=== PATIENT | female | born 1940 | race Caucasian/White ===

== ENCOUNTER 2016-07-25 08:08 | Observation (INO) | payer OTHER ==
[2016-07-18 09:45] LABS: HEMATOCRIT 36.3 % (36.0-48.0); HEMOGLOBIN 11.9 g/dL (12.0-16.0)
[2016-07-18 10:03] LABS: CHLORIDE, SERUM 104 MMOL/L (96-112); CO2 (CARBON DIOXIDE) 26 MMOL/L (24-34); CREATININE 1.35 MG/DL (0.55-1.02); GFR AFRICAN AMERICAN 45 ML/MIN (>=60); GFR NON AFRICAN AMERICAN 39 ML/MIN (>=60); GLUCOSE, SERUM 162 MG/DL (60-99); POTASSIUM, SERUM 5.4 MMOL/L (3.5-5.3); SODIUM, SERUM 139 MMOL/L (135-148)
[2016-07-18 10:06] LABS: BUN (BLOOD UREA NITROGEN) 20 MG/DL (6-23); CALCIUM, SERUM 9.4 MG/DL (8.5-10.4)
--- NOTE | ~2016-07-25 | OP ---
Record Of Operation [facility] [address] [place]. [address] NAME: DENNIS TRUJILLO : 44 STATUS : ADM IN PAT#: [id number] AGE: 76 ADM/REG DATE : 07/25/16 MR#: [id number] REPORT SERV DATE: 07/25/16 DICTATED BY: JEREMI NORRIS DATE: 07/25/16 REPORT STATUS : Draft TRANSCRIBED BY: MODL DATE: 07/25/16 DATE OF PROCEDURE: PREOPERATIVE DIAGNOSIS: Herniated nucleus polyposis and severe C7 radiculopathy on the right. POSTOPERATIVE DIAGNOSIS: Herniated nucleus polyposis and severe C7 radiculopathy on the right. PROCEDURE: 1. Microscopic navigation assisted surgery. 2. Right C6-C7 anterior cervical diskectomy. 3. Anterior interbody fusion with cortical cancellous allograft. 4. Anterior instrumentation with Venture plating. SURGEON: Jeremi Norris D.O. MANUFACTURER'S SERVICE REPRESENTATIVE: Lobo Benitez. ANESTHESIA: General. BLOOD LOSS: 10 mL. INDICATIONS FOR SURGERY: Risks were explained. They are listed in the last office's note as well history and physical. See that for detail. DESCRIPTION OF PROCEDURE: Antibiotic prophylaxis given. Neurophysiology monitoring leads inserted. The patient was brought to the operative suite. General anesthetic including endotracheal intubation was administered. The patient was in a supine position on fluoroscopic Armando spine frame. Bony prominences were carefully padded. The bolster was placed behind the shoulders. The neck was in neutral alignment. The scalp was painted with Betadine solution. Lynn 3-point fixation attached to the skull using 60 pounds of torque in standard position. Lynn was attached to the Armando bed. The [employer] navigational registration frame attached to the [place]. Isolation drapes were placed. The neck was scrubbed with Hibiclens solution. DuraPrep was painted. Sterile drapes applied. Intraoperative CT scan with O-arm obtained. CT information used to register the navigational system. With navigational assistance, I identified the C6-C7 level. On the left side parallel with the disc space at C6-C7, a transverse 2.5 cm skin incision was carried out. The platysma was incised in line with the skin incision. The superficial layer of the deep cervical fascia was released along the anterior border of the sternocleidomastoid. Blunt dissection was carried out to the retropharyngeal space. The bone retractors were placed. The disc of C6-C7 was exposed. The Bennett distractor pins were placed in the midbody of C6 and C7 using Record Of Operation [facility] [address] [place]. [address] NAME: DENNIS TRUJILLO : 44 STATUS : ADM IN PAT#: [id number] AGE: 76 ADM/REG DATE : 07/25/16 MR#: [id number] REPORT SERV DATE: 07/25/16 DICTATED BY: JEREMI NORRIS DATE: 07/25/16 REPORT STATUS : Draft TRANSCRIBED BY: MORELIA DATE: 07/25/16 navigational assistance and this was also used to re-verify the correct level and position. After the scope was sterilely draped, I used it throughout the remainder of the procedure. Initially, the disk was incised, diskectomy was completed with curettes and rongeurs. Posteriorly, just to the right of midline, there was a large tear in the posterior longitudinal ligament. The 1-mm Kerrison rongeur was used to take down the posterior longitudinal ligament and completely expose the disk space. Diskectomy was completed without difficulty. There was an epidural extrusion. After the disk was completed, the endplates were curetted. The width, depth, and height of the disk space was measured. A wedge-shaped cortical cancellous allograft was placed in the interbody space. Traction released locking the graft in good position. Finally, a 4-hole Venture plate was placed over the anterior bodies of C6 and C7, centered in the midline with navigational assistance. The four holes were drilled. Locking screws inserted, providing rigid stability. Intraoperative AP and lateral x-rays taken, showing good position of all implants. The wound was completely dry. No drain was placed. The platysma was closed with a running 3-0 Vicryl suture. Subcutaneous tissue was closed with 3 0 Vicryl suture, subcuticular 4-0 PDS was used for skin closure. Sterile dressings applied. The patient was awakened, extubated, taken to recovery room in satisfactory condition having tolerated the procedure well. Sponge, needle, and instrument counts were correct. No intraoperative complications noted. TATY/MORELIA Jeremi Norris D.O. / [id number] CC: Renuka Collins
--- NOTE | ~2016-07-25 | PREOPHP ---
PreOp History and Physical [facility] [address] [place]. [address] NAME: DENNIS TRUJILLO : 44 STATUS : ADM IN [facility]#: [id number] AGE: 76 ADM/REG DATE : 07/25/16 MR#: [id number] REPORT SERV DATE: 07/25/16 DICTATED BY: JEREMI NORRIS DATE: 07/25/16 REPORT STATUS : Draft TRANSCRIBED BY: MODL DATE: 07/25/16 CHIEF COMPLAINT: Neck pain, right shoulder and arm pain. HISTORY OF PRESENT ILLNESS: This is a 76-year-old female, who I have taken care of in the past with lower lumbar problems, now she has neck pain, right shoulder and arm pain, it is intractable. The patient has been through a conservative treatment program, but now has an MRI showing a large disk herniation with severe impingement on the C7 nerve root with herniation at C6-C7. There is some disk degeneration and facet arthropathy of C5-C6, but only C6-C7 has impingement. The patient has tried conservative care and failed, now brought to surgery for anterior cervical diskectomy, foraminotomy, C6-C7 with anterior interbody allograft and anterior instrumentation. Prior to surgery, risks, benefits, alternatives, and expectations have been explained. Consent form has been signed. Please also note, because of the complexity of surgery and the need to identify correct level of surgery intraoperatively as well as desire to carry out the safest and most precise dissection with least amount of radiation exposure, I felt that intraoperative navigation was mandatory. Today, the patient was identified in preop holding. All questions were answered. The patient voiced understanding of the risks, willingness to accept those, and requested to proceed with surgery. 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 PAST SURGICAL HISTORY: The patient has had lumbar diskectomy, also lumbar fusion, wisdom tooth extraction, abdominal hysterectomy, cataract extraction and lens implant, right total knee arthroplasty. She has also had previous lumbar fusion by Dr. Smith. She had cardiac stents x2. CURRENT MEDICATIONS: Coumadin, Voltaren, ranitidine, spironolactone, oxybutynin, metformin, amlodipine, atorvastatin, citalopram, Flexeril, iron, gabapentin, losartan. ALLERGIES: MORPHINE. SOCIAL HISTORY: , retired. Does not use any tobacco or alcohol. FAMILY HISTORY: Her mother had esophageal cancer, father had COPD, one brother had DC, all are . REVIEW OF SYSTEMS: She denies current chest pain, pressure, or shortness of breath. Has had no recent change in bowel and bladder function. PHYSICAL EXAMINATION: VITAL SIGNS: 5 feet 6 inches and 155 pounds. BMI is 25. GENERAL: She is alert, cooperative, well oriented. Ambulates independently. PreOp History and Physical [address] [address] NAME: DENNIS TRUJILLO : 44 STATUS : ADM IN [facility]#: [id number] AGE: 76 ADM/REG DATE : 07/25/16 MR#: [id number] REPORT SERV DATE: 07/25/16 DICTATED BY: JEREMI NRORIS DATE: 07/25/16 REPORT STATUS : Draft TRANSCRIBED BY: MORELIA DATE: 07/25/16 HEENT: She is normocephalic. She has a lot of hair loss. Pupils are equal and reactive to light. Extraocular muscles intact. Oral exam is grossly normal. NECK: No carotid bruits are auscultated. MUSCULOSKELETAL: The neck exam reveals positive abducted arm sign and positive Spurling sign on the right. There is a negative Lhermitte sign. Negative Tinel sign at the elbow and wrist. She has limited range of motion due to the pain. Her triceps reflex is completely absent on the right. On the left, it is 1/4 biceps and brachioradialis is 1/4 bilaterally. There is some dermatomal sensory deficit in the C7 distribution on the right compared to the left. Her motor strengths are normal except the triceps, it is 4/5. The shoulder has no signs of instability or impingement. LUNGS: Clear to auscultation. HEART: Regular rate and rhythmic. ABDOMEN: Soft with good bowel sounds. No peritoneal signs are noted. EXTREMITIES: The lower extremity musculoskeletal exam reveals prior hip and knee surgery, but no gross deformities. There is no pain with moving hips, knees, or ankles. There are pulses present in all four extremities. No abnormal skin lesions found. ASSESSMENT AND RECOMMENDATIONS: As listed above. TATY/MORELIA Jeremi Norris D.O. / [id number] CC: Renuka Collins
[~2016-07-25 08:08] MED LIST: ASAB PO; ATV1 PO; C5 PO; CELEXA40 MG PO; COZAAR100 MG PO; DITRO5 PO; FERROUS SULF325 M1 PO; GLUCPH PO; IRON325 MG PO; LIOR10 PO; LIPITOR20 PO; NEUR100 PO; NEUR300 PO; NEUR600 PO; NORCO1 TA1 PO; NORCO1 TA2 PO; NORV10 PO; PROTONIX PO; RANITIDINE300 MG PO; SPIRO25 PO; TOVIAZ8 MG PO; VITAMIN D31000 UNIT PO
[2016-07-26 05:28] LABS: BUN (BLOOD UREA NITROGEN) 18 MG/DL (6-23); CALCIUM, SERUM 9.1 MG/DL (8.5-10.4); CHLORIDE, SERUM 101 MMOL/L (96-112); CO2 (CARBON DIOXIDE) 23 MMOL/L (24-34); CREATININE 1.27 MG/DL (0.55-1.02); GFR AFRICAN AMERICAN 48 ML/MIN (>=60); GFR NON AFRICAN AMERICAN 42 ML/MIN (>=60); GLUCOSE, SERUM 162 MG/DL (60-99); POTASSIUM, SERUM 4.9 MMOL/L (3.5-5.3); SODIUM, SERUM 135 MMOL/L (135-148)
[2016-07-26] MEDS ORDERED: NORCO1 TA1 PO (08:12)
[2016-07-26] MEDS ORDERED: METHOC500B PO (08:13)
== END 2016-07-26 09:54 | disposition home or self-care (01) ==
LOC: SDC 08:08 → SDC/OF 14:55 → 3SO 14:56
PROVIDERS: Orthopaedic Surgery Orthopaedic Surgery of the Spine
PROC: 0RG10J0 Fusion of Cervical Vertebral Joint with Synthetic Substitute, Anterior Approach, Anterior Column, Open Approach (ICD-10-PCS; 2016-07-25)
PROC: 0RG10K0 Fusion of Cervical Vertebral Joint with Nonautologous Tissue Substitute, Anterior Approach, Anterior Column, Open Approach (ICD-10-PCS; principal; 2016-07-25 10:15)
PROC: 0RB30ZZ Excision of Cervical Vertebral Disc, Open Approach (ICD-10-PCS; 2016-07-25 10:15)
DX: M50.123 Cervical disc disorder at C6-C7 level with radiculopathy (principal); I25.10 Atherosclerotic heart disease of native coronary artery without angina pectoris; I10 Essential (primary) hypertension; E11.9 Type 2 diabetes mellitus without complications; K21.9 Gastro-esophageal reflux disease without esophagitis; F17.210 Nicotine dependence, cigarettes, uncomplicated; E78.00 Pure hypercholesterolemia, unspecified
CPT/HCPCS: 80048; 82962; 85014; 85018; 87641; 88304; 93005; 96374; 96375; 96376; A9270-GY; C1713; C1768; G0378; J0690; J2250; J2405; J2710; J3010